=== PATIENT | female | born 2000 | race African-American/Black ===

== ENCOUNTER 2023-06-14 16:39 | Emergency (ER) | payer OTHER ==
[2023-06-14 16:54] VITALS: BP 133/67
--- NOTE | 2023-06-14 17:03 | ED Physician Documentation ---
PD HPI FEMALE - Stated complaint Stated Complaint: FOLLOW UP MC - Chief complaint Chief Complaint: Abd Pain - History obtained from History obtained from: Patient - Additional information Additional information: 23-year-old female presents from primary care clinic for miscarriage. She was at a follow-up appointment following an ER visit 5 days ago where she was informed that she had an early first trimester miscarriage. She told the provider at the clinic that she was still having bleeding and cramping and she was sent here for evaluation. Patient states that she will occasionally pass small clots and tissue, however bleeding is otherwise like a normal menstrual period. She states that she went to the clinic to ensure that she had passed everything but otherwise she has no complaints. Review of Systems : reports: Vaginal bleeding. denies: LMP, Irregular menses, Now EGA PD PAST MEDICAL HISTORY - Allergies Allergies/Adverse Reactions: Allergies Allergy/AdvReac Type Severity Reaction Status Date / Time No Known Drug Allergies Allergy Verified 06/14/23 16:50 PD ED PE NORMAL - Vitals Vital signs reviewed: Yes - General General: Alert and oriented X 3, No acute distress, Well developed/nourished - Respiratory Respiratory: No respiratory distress - Abdomen Abdomen: Soft, Non tender, Non distended - Derm Derm: Normal color, Warm and dry, No rash - Extremities Extremities: No deformity, No tenderness to palpate, Normal ROM s pain - Neuro Neuro: Alert and oriented X 3, 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, No motor deficit, Normal speech - Psych Psych: Normal mood, Normal affect Results - Vitals Vitals: Vital Signs - 24 hr 06/14/23 16:48 Temperature 36.6 C Heart Rate 59 L Respiratory 18 Rate Blood Pressure 133/67 H O2 Saturation 100 Oxygen O2 Source Room air PD Medical Decision Making - ED course Complexity details: reviewed old records, reviewed results, re-evaluated p atient, considered differential ED course: This is a well-appearing patient who was sent in for evaluation of bleeding and cramping following miscarriage, however in the ER patient states that she went to the primary appointment to ensure that she has fully passed all products of conception and was referred instead to the ER. Patient was informed that it can take up to 2 weeks before it is determined that someone has not fully passed all materials and if she feels otherwise well there is little utility in repeating the ultrasound today. Patient expressed understanding stating that she will follow up with her normal navoh primary doctor or return if she becomes symptomati from her bleeding. Record review shows patient is blood type O positive Departure - Departure Disposition: Home, Self Care Clinical Impression: Miscarriage Condition: Stable Instructions: ED Miscarriage Incom Forms: PCP List
== END 2023-06-14 17:18 | disposition home or self-care (01) ==
LOC: ED 16:39
DX: O03.9 Complete or unspecified spontaneous abortion without complication (principal)
CPT/HCPCS: 80048; 84702; 85025; 99283

== ENCOUNTER 2023-09-27 13:12 | Emergency (ER) | payer OTHER ==
[2023-09-27 13:42] VITALS: BP 128/74; O2SAT 100
--- NOTE | 2023-09-27 14:09 | XRAY Report ---
PROCEDURE: Hand 3 View BILAT INDICATIONS: Trauma TECHNIQUE: 3 views of the hand(s) acquired. COMPARISON: None. FINDINGS: Bones: Mildly displaced and mildly angulated fracture of the midportion of the left fifth metacarpal . No suspicious bony lesions. Soft tissues: No suspicious soft tissue calcifications or masses. IMPRESSION: Left fifth metacarpal fracture. Reviewed by: Davin Youssef MD on 09/27/2023 2:08 PM PST Approved by: Davin Youssef MD on 09/27/2023 2:08 PM PST Station ID: [id number]
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
== END 2023-09-27 15:36 | disposition home or self-care (01) ==
LOC: ED 13:12
DX: S62.307A Unspecified fracture of fifth metacarpal bone, left hand, initial encounter for closed fracture (principal); W22.09XA Striking against other stationary object, initial encounter
CPT/HCPCS: 99283

== ENCOUNTER 2024-02-07 12:46 | Emergency (ER) | payer OTHER ==
--- NOTE | 2024-02-07 13:37 | ED Physician Documentation ---
PD HPI FEMALE - Stated complaint Stated Complaint: - Chief complaint Chief Complaint: Abd Pain - Additional information Additional information: 23-year-old female with no pertinent past medical history presents emergency department for vaginal bleeding. Patient says that she is taken an at home test and she is about 7 weeks last menses was December 12. Patient says that she has history of miscarriage about a year ago, G2, P0. Patient said that she started having some vaginal bleeding wet a week ago and she has had no vaginal bleeding since then. She says that she started just get really anxious she has had a very slight amount of cramping in her pelvic area and she is told to make sure she is not having a miscarriage. PD PAST MEDICAL HISTORY - Past Surgical History Past Surgical History: No - Present Medications Home Medications: Ambulatory Orders Medication Instructions Recorded Confirmed No Known Home Medications 02/07/24 02/07/24 - Allergies Allergies/Adverse Reactions: Allergies Allergy/AdvReac Type Severity Reaction Status Date / Time No Known Drug Allergies Allergy Verified 02/07/24 13:04 - Social History Does the pt smoke?: No Smoking Status: Never smoker Does the pt drink ETOH?: No Does the pt have substance abuse?: No - Immunizations Immunizations are current?: Yes - POLST Patient has POLST: No PD ED PE NORMAL - Vitals Vital signs reviewed: Yes - General General: Alert and oriented X 3, No acute distress, Well developed/nourished - Abdomen Abdomen: Normal bowel sounds, Soft, Non tender, Non distended, No organomegaly - Back Back: No CVA TTP - Derm Derm: Normal color, Warm and dry, No rash - Extremities Extremities: No edema - Psych Psych: Normal mood, Normal affect Results - Vitals Vitals: Vital Signs - 24 hr 02/07/24 02/07/24 13:00 15:30 Temperature 36.5 C Heart Rate 73 70 Respiratory 16 16 Rate Blood Pressure 129/77 137/83 H O2 Saturation 100 100 Oxygen O2 Source Room air - Labs Labs: Laboratory Tests 02/07/24 02/07/24 02/07/24 14:04 14:04 14:30 WBC 9.5 RBC 4.06 L Hgb 11.8 L Hct 36.1 L MCV 88.9 MCH 29.1 MCHC 32.7 RDW 11.9 L Plt Count 315 MPV 9.4 Neut # (Auto) 6.7 H Lymph # (Auto) 2.1 [place] # (Auto) 0.6 Eos # (Auto) 0.1 Baso # (Auto) 0.0 Absolute Nucleated RBC 0.00 Nucleated RBC % 0.0 Sodium 134 L Potassium 3.8 Chloride 105 Carbon Dioxide 24 Anion Gap 5.0 L BUN 5 L Creatinine 0.7 Estimated GFR (MDRD) 124 Glucose 86 Calcium 9.0 Magnesium 1.7 Total Bilirubin 0.5 AST 15 ALT 9 L Alkaline Phosphatase 28 L Total Protein 6.3 L Albumin 3.9 Globulin 2.4 Albumin/Globulin Ratio 1.6 Lipase < 10 L Beta HCG, Quant 53209.9 Urine Color YELLOW Urine Clarity CLEAR Urine pH 6.0 Ur Specific [place] 1.015 Urine Protein NEGATIVE Urine Glucose (UA) NEGATIVE Urine Ketones 15 H Urine Occult Blood NEGATIVE Urine Nitrite NEGATIVE Urine Bilirubin NEGATIVE Urine Urobilinogen 0.2 (NORMAL) Ur Leukocyte Esterase NEGATIVE Ur Microscopic Review NOT INDICATED Urine Culture Comments NOT INDICATED - Rads (name of study) OB first trimester US Relevant Findings:: Final report received, EMP independent interpretation of test, Other (two seperate gestastion sacs, nothing seen in sacs. largest sac no yolk sac, smaller sac has yolk sac. 2 corpus luteal cysts of the right ovary.) PD Medical Decision Making - ED course ED course: 23-year-old female presents emergency department for scant vaginal bleeding and mild pelvic discomfort. Patient says that she was concerned that she may be having a miscarriage and she believes that she is about 7 weeks . Beta hCG is greater than 54,000 1st trimester ultrasound has been complete which revealed 2 separate gestational sacs, 1 sac measuring 6 weeks 6 days, the smaller sac measuring 5 weeks 5 days neither sac has a crown-rump length or heartbeat. The larger sac does not have a yolk sac and the smaller one does have a yolk sac. Because of these findings I reached out to [employer] Dr. Ivey who was kind enough to come down to the emergency department chat with patient about plan. Dr. Ivey plans to follow-up with patient in clinic outpatient on Monday for further evaluation and plan for Patient going back and forth whether she wants to keep or terminate But otherwise she will follow-up with clinic on Monday to decide if she terminates or repeat hCG. Departure - Departure Disposition: Home, Self Care Clinical Impression: First trimester , Threatened miscarriage , twins Qualifiers: Multiple gestation type: unspecified Trimester: first trimester Qualified Code(s): O30.001 - Twin , unspecified number of placenta and unspecified number of amniotic sacs, first trimester Instructions: Preg Multiples Concerns Comments: Thank you for trusting us with your care, we have evaluated you for your vaginal bleeding. Ultrasound revealed that you have 2 gestational sacs of unknown viability. Please follow-up with [employer] on Monday they will call you to make an appointment you will report to the woman's care clinic here at the hospital. Please come back to the emergency department having any severe abdominal pain, heavy vaginal bleeding, or any other concerning symptoms. Wishing you the best as you navigate this. Sunny Claudio DNP Forms: PCP List
[2024-02-07 13:50] VITALS: O2SAT 100
[2024-02-07 14:09] LABS: BASOPHILS % (AUTO) 0.4 %; EOSINOPHILS # (AUTO) 0.1 10^3/uL (0.0-0.7); EOSINOPHILS % (AUTO) 0.7 %; HCT - HEMATOCRIT 36.1 % (37.0-47.0); HGB - HEMOGLOBIN 11.8 g/dL (12.0-16.0); LYMPHOCYTES # (AUTO) 2.1 10^3/uL (1.5-3.5); LYMPHOCYTES % (AUTO) 22.2 %; MEAN CORPUSCULAR HEMOGLOBIN 29.1 pg (27.0-31.0); MEAN CORPUSCULAR HGB CONC 32.7 g/dL (32.0-36.0); MEAN CORPUSCULAR VOLUME 88.9 fL (81.0-99.0); MEAN PLATELET VOLUME 9.4 fL (7.9-10.8); MONOCYTES # (AUTO) 0.6 10^3/uL (0.0-1.0); MONOCYTES % (AUTO) 6.3 %; NEUTROPHILS # (AUTO) 6.7 10^3/uL (1.5-6.6); NEUTROPHILS % (AUTO) 70.1 %; PLT - PLATELET COUNT 315 10^3/uL (130-450); RED BLOOD COUNT 4.06 10^6/uL (4.20-5.40); RED CELL DISTRIBUTION WIDTH 11.9 % (12.0-15.0); WHITE BLOOD COUNT 9.5 x10^3/uL (4.8-10.8)
[2024-02-07 14:23] LABS: ALBUMIN 3.9 g/dL (3.2-5.5); ALBUMIN/GLOBULIN RATIO 1.6 (1.0-2.2); ALKALINE PHOSPHATASE 28 IU/L (42-121); ALT ALANINE AMINOTRANSFERASE 9 IU/L (10-60); AST ASPARTATE AMINOTRANSFERASE 15 IU/L (10-42); BILIRUBIN,TOTAL 0.5 mg/dL (0.2-1.0); BUN - BLOOD UREA NITROGEN 5 mg/dL (6-20); CARBON DIOXIDE - CO2 24 mmol/L (21-32); CHLORIDE 105 mmol/L (101-111); CREATININE 0.7 mg/dL (0.6-1.3); GFR - MDRD 124 (>89); GLUCOSE 86 mg/dL (74-104); MAGNESIUM 1.7 mg/dL (1.7-2.3); POTASSIUM 3.8 mmol/L (3.5-4.5); SODIUM 134 mmol/L (135-145); TOTAL PROTEIN 6.3 g/dL (6.4-8.9)
[2024-02-07 14:27] LABS: LIPASE < 10 U/L (11-82)
[2024-02-07 15:11] LABS: BILIRUBIN,URINE NEGATIVE (NEGATIVE); GLUCOSE, URINE (UA) NEGATIVE (NEGATIVE); KETONES,URINE (UA) 15 mg/dL (NEGATIVE); LEUKOCYTE ESTERASE, URINE NEGATIVE (NEGATIVE); NITRITE,URINE NEGATIVE (NEGATIVE); OCCULT BLOOD,URINE NEGATIVE (NEGATIVE); PROTEIN,URINE NEGATIVE (NEGATIVE); UROBILINOGEN,URINE 0.2 (NORMAL) E.U./dL (NORMAL)
[2024-02-07 15:17] LABS: CLARITY,URINE CLEAR (CLEAR)
--- NOTE | 2024-02-07 16:03 | Ultrasound Report ---
PROCEDURE: OB 1st Trimester INDICATIONS: cramping, vaginal bleeding, known 7 weeks preg. Beta hCG given as 54,577.9 on 02/07/2024 OUTSIDE/PRIOR DATING DATA: Last menstrual period (LMP): 12/14/2023. LMP-based estimated date of delivery (MIGUEL): 09/19/2024. First dating scan (date and location): 02/07/2024. Estimated date of delivery (MIGUEL) from LMP: 09/19/2024. TECHNIQUE: Real-time scanning was performed of the fetus and maternal pelvic organs, with image documentation. COMPARISON: None. FINDINGS: 2 separate gestational sacs are noted in the uterus. The larger sac measures 2.0 cm, 6 wee ks 6 days, and the smaller sac measures 0.93 cm, 5 weeks 5 days. Neither sac has a crown-rump length or heartbeat. The largest sac does not have a yolk sac. The smaller sac has a yolk sac. There is lowe r uterine segment hemorrhage. Measurement variability in dating: +/- 4 weeks by LMP, +/- 7 days by mean sac diameter (use before 6 weeks gestation if crown-rump length not able to be measured), +/- 5 days by crown-rump length (6-12 weeks gestation). Maternal organs: There are 2 corpus luteal cysts of the right ovary. IMPRESSION: Findings most likely represent nonviable twin gestations. Recommend follow-up with serial beta hCGs a nd possibly follow-up ultrasound in 1-2 weeks. There are no findings suggesting ectopic at this time. Reviewed by: Rusty Messer MD on 02/07/2024 4:02 PM PDT Approved by: Rusty Messer MD on 02/07/2024 4:02 PM PDT Station ID: [id number]
[2024-02-07 17:11] VITALS: BP 143/79
--- NOTE | 2024-02-07 19:56 | CONSULTATION NOTE ---
Surgery Consult - Consult Date Consult Date: 02/07/24 - Home Meds/Allergies Home Medications: Patient History Medication Instructions Recorded Confirmed No Known Home Medications 02/07/24 02/07/24 Allergies/Adverse Reactions: Allergies Allergy/AdvReac Type Severity Reaction Status Date / Time No Known Drug Allergies Allergy Verified 02/07/24 13:04 - Vital Signs Vital Signs: Last Vital Signs Temp 97.7 F 02/07/24 13:00 Pulse 76 02/07/24 17:06 Resp 16 02/07/24 17:06 BP 143/79 H 02/07/24 17:06 Pulse Ox 100 02/07/24 17:06 O2 Flow Rate - Lab Results Result Diagrams: 02/07/24 14:04 02/07/24 14:04 - Consultation Note Consultation Note: HPI: Patient is a 23-year-old -0-1-0 at approximately 7 weeks gestation presenting today for vaginal bleeding. She took a home test and found out she was . She then had heavier bleeding last , but this has since subsided. She does have a history of miscarriages where this happened again. Contacted today after she had a quantitative hCG of 54,000 and an ultrasound showing 2 separate gestational sacs with a larger sac measuring 20 mm without a yolk sac and the smaller 9 mm with a yolk sac. PMH Denies significant history PSH No prior surgeries SH Denies tobacco, alcohol, drugs Family History Noncontributory Allergies No known drug allergy Medications no current medications Physical exam: General: Alert, oriented, no acute distress Head: Normocephalic, atraumatic Respiratory: Normal rate of respiration. No accessory muscle use, normal respiratory effort. Cardiovascular: Regular rate and rhythm Abdomen: Nontender, nondistended Neuro: Oriented x3. Normal movements Psych: Appropriate mood and affect. Normal judgment and insight Plan 23-year-old -0-1-0 at 7 weeks gestation 1. Threatened miscarriage -Discussed the bleeding is not normal, although not always problematic. -Will continue to assess her options. -Plan to follow-up at [facility] on Monday for discussion on options, repeat hCG for viability, or management options. -We discussed that while these are approaching upper limits of normal for ges tational sac size, is not diagnostic for loss. -If she continues to desire the , would recommend repeat hCG in 48 hours and repeat ultrasound in 11 days as she does have milk sac in one of the gestational sacs. 2. 7 weeks gestation
== END 2024-02-07 17:07 | disposition home or self-care (01) ==
LOC: ED 12:46
DX: O20.0 Threatened abortion (principal); Z3A.01 Less than 8 weeks gestation of pregnancy; Z87.59 Personal history of other complications of pregnancy, childbirth and the puerperium
CPT/HCPCS: 36415; 80053; 81001; 81003; 83690; 83735; 84702; 85025; 87086; 99284